=== PATIENT | male | born 1935 | race Caucasian/White ===

== ENCOUNTER 2017-04-19 19:37 | Emergency (ER) | payer MEDICARE ==
[2017-04-19 20:15] LABS: BASOPHILS 0.4 % (0-2); EOSINOPHILS 2.5 % (0-7); HEMATOCRIT 35.5 % (42.0-54.0); HEMOGLOBIN 12.8 g/dL (13.5-17.5); IMMATURE GRANULOCYTES 0.4 % (0-5); LYMPHOCYTES 24.5 % (15-50); MCH 31.1 pg (26.0-34.0); MCHC 36.1 g/dL (31.0-37.0); MCV 86.4 fL (80.0-100.0); MEAN PLATELET VOLUME 9.8 fL (7.4-10.4); MONOCYTES 6.2 % (2-11); PLATELET COUNT 232 10x3/uL (130-400); RBC 4.11 10x6/uL (4.20-6.10); RDW 13.4 % (11.5-14.5); WBC 10.9 10x3/uL (4.8-10.8)
[2017-04-19 20:33] LABS: ALBUMIN 3.9 g/dL (3.4-5.0); ALKALINE PHOSPHATASE 72 U/L (46-116); ALT (SGPT) 13 U/L (10-68); BILIRUBIN - TOTAL 0.56 mg/dL (0.2-1.3); CALC OSMOLALITY 288 mosm/kg (275-300); CALCIUM 8.4 mg/dL (8.5-10.1); CARBON DIOXIDE 21.5 mmol/L (21.0-32.0); CHLORIDE - SERUM 105 mmol/L (98-107); GLUCOSE 174 mg/dL (74-106); POTASSIUM - SERUM 3.8 mmol/L (3.5-5.1); PROTEIN - SERUM 7.4 g/dL (6.4-8.2); SODIUM 143 mmol/L (136-145); UREA NITROGEN 13 mg/dL (7-18); eGFR NON AFRICAN AMERICAN 76 mL/min (90-120)
[2017-04-19 20:40] LABS: CKMB 0.8 U/L (0.0-3.6); CREATINE KINASE 79 UL (21-232)
[2017-04-19 20:41] LABS: TROPONIN-I < 0.017 ng/mL (0.000-0.060)
== END 2017-04-19 21:22 | disposition home or self-care (01) ==
LOC: D.ER 19:37
PROVIDERS: Emergency Medicine
DX: I10 Essential (primary) hypertension (principal)